=== PATIENT | male | born 1980 | race Caucasian/White ===

== ENCOUNTER → 2018-04-09 | Outpatient (CLI) | payer BC ==
[~2018-04-09] MED LIST: ATOM80CA3 PO; CEP500 PO; FEXO1TAB41 PO; LEVO112T43 PO; LOR5 PO; LOR7.5/325 PO; METH20CP9 PO; MINO100T8 PO; OMEP-218 PO; TERB250T64 PO; TUM500 PO
--- NOTE | 2018-04-09 15:24 | RADIOLOGY IMAGING REPORT ---
[place] [facility] [place] NAME: Soren Montague : 1980 MR: [id number] V: [id number] EXAM DATE: ORDERING PHYSICIAN: FEDE ALEJANDRO TECHNOLOGIST: Location: [facility] Patient: Soren Montague : 1980 Visit/Account:[id number] Date of Sevice: 04/09/2018 KNEE 4 VIEW LEFT Indication: Lump on lateral side of left knee. Comparison: None Findings: Distal femur, proximal tibia and fibula, the patella demonstrate normal mineralization and alignment. Soft tissues are unremarkable. A BB marker is placed to the patient's palpable lump. No bone abnormalities seen. IMPRESSION: Normal left knee radiograph. If patient has palpable lump where the skin marker is, recommend ultrasound evaluation at the area of lump for further evaluation. This may represent a benign lipoma. Report Dictated By: Nick Frances at 04/09/2018 3:18 PM Report E-Signed By: Nick Frances at 04/09/2018 3:19 PM WSN:[email or web address]
--- NOTE | 2018-04-09 15:48 | RADIOLOGY IMAGING REPORT ---
FACILITY: [facility] PATIENT NAME: Soren Montague : 1980 MR: [id number] V: [id number] EXAM DATE: ORDERING PHYSICIAN: FEDE ALEJANDRO [place]CHN[place] [facility] [place] : 1980 Visit/Account:[id number] Date of Sevice: 04/09/2018 SOFT TISSUE NON-SPECIFIC Indication: Lump lateral aspect of the left knee. Comparison: None. Findings: There is a benign lipoma in the subcutaneous tissues, 6.4 x 3.2 x 2.0 cm. IMPRESSION: Patient's palpable lump represents a benign lipoma. Report Dictated By: Nick Frances at 04/09/2018 3:37 PM Report E-Signed By: Nick Frances at 04/09/2018 3:42 PM WSN:[email or web address]
== END ==
LOC: US 01:08
PROVIDERS: ATTEND Nurse Practitioner Family
DX: D17.79 Benign lipomatous neoplasm of other sites (principal)
CPT/HCPCS: 73564; 76999

== ENCOUNTER 2018-07-17 02:46 | Day surgery (SDC) | payer BC ==
[~2018-07-17] VITALS: Ht 182.9 cm; Wt 113.4 kg
[~2018-07-17 02:46] MED LIST changes: +ATOR20TA22 PO; +LEV112 PO; +LEVO125T77 PO; +LEVO137T22 PO; +TEST100V6 IM
[2018-07-17] MEDS ORDERED: FAMOTIDINE 20 MG TAB PO ONE (10:05)
[2018-07-17] MEDS ORDERED: MIDAZOLAM 2 MG/2 ML VIAL IVP PRN (10:05)
[2018-07-17] MEDS ORDERED: LIDOCAINE/SOD BICARB 8.4% SYR ID ONE (10:05)
[2018-07-17] MEDS ORDERED: NORMOSOL R SOLN(*) 1000 ML BAG 1,000 ML IV PRN (10:05)
[2018-07-17 12:38] VITALS: BP 145/84
[2018-07-17] MEDS ORDERED: PROPOFOL EMUL(*) 10MG/ML 20 ML 20 ML ONE (13:34)
[2018-07-17] MEDS ORDERED: LIDOCAINE MPF 1% 5 ML VIAL ONE (13:34)
[2018-07-17] MEDS ORDERED: ONDANSETRON 4 MG/2 ML VIAL ONE (13:34)
[2018-07-17] MEDS ORDERED: DEXAMETHASONE SOD PHOS 10MG/ML ONE (13:34)
[2018-07-17] MEDS ORDERED: fentaNYL CITR 100 MCG/2 ML AMP ONE (13:37)
[2018-07-17] MEDS ORDERED: KETAMINE HCL 500 MG/10 ML VIAL ONE (13:38)
[2018-07-17] MEDS ORDERED: ROPIVACAINE 0.5% 20 ML VIAL ONE (13:59)
[2018-07-17] MEDS ORDERED: OXYC-854 PO (16:27)
[2018-07-17] MEDS ORDERED: DOCU-416 PO (16:27)
--- NOTE | 2018-07-17 16:31 | Short(Outpt) Discharge Summary ---
Discharge Summary Reason for Hosp/Final Diag: (1) Subcutaneous mass Status: Chronic Hospital Course & Plan: Left lower leg subcutaneous mass excised without problems. Departure Discharge to: Home, Self Care Discharge Instructions Home Meds Active Scripts Docusate Sodium (COLACE) 100 Mg Capsule, 1 CAP PO BID, #30 CAP 0 Refills TAKE WITH A FULL GLASS OF WATER Prov:DIXON GUTHRIE MD 07/17/18 Oxycodone Hcl/Acet 5/325 Mg (ENDOCET 5-325 TABLET) 1 Each Tablet, 1 TAB PO Q4H PRN for PAIN, #10 TAB 0 Refills Prov:DIXNO GUTHRIE MD 07/17/18 Reported Medications Levothyroxine Sodium (SYNTHROID) 137 Mcg Tablet, 137 MCG PO QDAY 07/08/18 Testosterone Cypionate (TESTOSTERONE CYPIONATE) 100 Mg/1 Ml Vial, 0.25 ML IM 2XW, VIAL 05/15/18 Atorvastatin Calcium (LIPITOR) 20 Mg Tablet, 1 TAB PO QHS, TAB 05/15/18 Follow up Referrals: General Surgery - 08/06/18 @ Surgery, General with DIXON GUTHRIE MD You have a follow up appointment scheduled with Dr. Guthrie on Saturday, August 06, 2018, at 3:00pm. Diet: Regular Activity: As Tolerated Special Instructions: You may remove the wrap and white surgical dressing on 07/19/18, then you can shower. After showering, leave the incision open to air but leave the steristrips in place until they fall off in their own. Do not immerse the incision for 2 weeks. DIXON GUTHRIE MD Jul 17, 2018 16:31
--- NOTE | 2018-07-17 16:43 | Post Operative Progress Note ---
Post Operative Progress Note Date: Jul 17, 2018 Time: 16:32 Surgeon: Carolyn Dictation number: [id number] Anesthesia: LMA by Dr. Gonsalez Pre-Op Diagnosis: Left lower leg subcutaneous mass Post-Op Diagnosis: TOM Findings: C/W benign lipoma Procedure(s): Excision of left lower leg subcutaneous mass Specimen Removed:(May be N/A): Left lower leg subcutaneous mass Complications: None Fluids: See anesthesia Estimated Blood Loss: Minimal Date OP Note Dictated: Jul 17, 2018 Time OP Note Dictated: 16:33 DIXON GUTHRIE MD Jul 17, 2018 16:43
[2018-07-17 16:55] VITALS: BP 148/94
[2018-07-17 17:02] VITALS: BP 147/97
--- NOTE | 2018-07-17 17:02 | OPERATIVE REPORT 1 ---
EVENT DATE: July 17, 2018 SURGEON: Primitivo Leon MD ANESTHESIOLOGIST: Michel Gonsalez MD ANESTHESIA: LMA PREOPERATIVE DIAGNOSIS Left lower leg subcutaneous mass. POSTOPERATIVE DIAGNOSIS Left lower leg subcutaneous mass. PROCEDURE PERFORMED Excision of left lower leg subcutaneous mass. COMPLICATIONS None. CONDITION Stable. BLOOD LOSS Minimal. FINDINGS The mass was consistent with a benign lipoma. INDICATIONS This is a 38-year-old gentleman who presented to my office with a mass on the lateral aspect of the his left lower leg just below the knee, and he was requesting to have it removed. He thinks it is getting bigger, and it is causing him some discomfort. DESCRIPTION OF PROCEDURE The patient was brought to the operating room and placed supine on the operating table. LMA anesthesia was administered, and his left leg was positioned with medial rotation to expose this left lateral subcutaneous mass. This area was prepped and draped in a sterile fashion. Timeout was completed. I marked the skin overlying the palpable mass and then injected the skin with 0.5% ropivacaine plain. I then made a longitudinally oriented incision overlying the mass. I dissected through the dermis and into the subcutaneous fat and identified the mass, which was very intimately associated with surrounding tissues, but there was a plane I was ultimately able to find to get around it. I dissected completely around the mass and then peeled it off the underlying muscle fascia. This was right next to the peroneal nerve, and the peroneal nerve was preserved. I did not go deep to the muscle fascia. I peeled it off the muscle fascia and then passed the specimen off the field. I then made the wound hemostatic with electrocautery. I then irrigated and dried the wound and then closed the skin with interrupted 3-0 Vicryl deep dermal sutures and 4-0 Monocryl running subcuticular suture. Skin was cleaned and dried, and Steri- Strips were applied, followed by a sterile surgical dressing. I then placed 4 x 4 gauze over the dressing and wrapped his leg and knee with Coban. He was then awakened, LMA removed, and he was transferred to the recovery room in stable condition having tolerated the procedure without any apparent problems. I did check his dorsiflexion in both feet, and these were preserved. He otherwise tolerated the procedure without any apparent problems. WINNIE
[2018-07-17 17:03] VITALS: BP 132/88
== END 2018-07-17 17:54 | disposition home or self-care (01) ==
LOC: OR 02:46
PROVIDERS: ATTEND Surgery
DX: D17.24 Benign lipomatous neoplasm of skin and subcutaneous tissue of left leg (principal); E78.5 Hyperlipidemia, unspecified; E03.9 Hypothyroidism, unspecified
CPT/HCPCS: 27632; 88305; J1100; J2001; J2405; J2704; J2795; J3010; J3490